=== PATIENT | female | born 1945 | race Caucasian/White ===

== ENCOUNTER 2022-05-14 13:02 | Emergency (ER) | payer MEDICARE ==
[2022-05-14] VITALS (12 sets, daily range): BP systolic 134–158; BP diastolic 67–89
[2022-05-14] MEDS ORDERED: FLEXERIL5 M1 PO (18:24)
[2022-05-14] MEDS ORDERED: NAPROXEN500 MG PO (18:24)
[2022-05-14] MEDS ORDERED: HYDROCO/APAP1 TA9 PO (18:24)
== END 2022-05-14 18:49 | disposition home or self-care (01) ==
LOC: ED 13:02
DX: S16.1XXA Strain of muscle, fascia and tendon at neck level, initial encounter (principal); I10 Essential (primary) hypertension; X50.0XXA Overexertion from strenuous movement or load, initial encounter; Y93.89 Activity, other specified; Y92.009 Unspecified place in unspecified non-institutional (private) residence as the place of occurrence of the external cause; Z95.5 Presence of coronary angioplasty implant and graft

== ENCOUNTER 2024-08-04 02:50 | Emergency (ER) | payer MEDICARE ==
[2024-08-04] VITALS (22 sets, daily range): BP systolic 142–176; BP diastolic 92–112
[~2024-08-04] VITALS: Ht 149.9 cm; Wt 49.0 kg
[~2024-08-04 02:50] MED LIST: FLEXERIL5 M1 PO; HYDROCO/APAP1 TA9 PO; NAPROXEN500 MG PO
[2024-08-04] MEDS ORDERED: Pantoprazole Sodium 40 MG VIAL (Protonix) IV STA (03:17)
[2024-08-04] MEDS ORDERED: SODIUM CHLORIDE 0.9% 1,000 ML IV STA (03:17)
[2024-08-04 03:52] LABS: BASO% 0.2 % (0-3); HEMATOCRIT 32.2 % (37.0-47.0); HEMOGLOBIN 9.8 g/dl (12.0-16.0); IMMATURE GRANULOCYTES 1.4 % (0.0-5.0); LYMPH% 7.2 % (15-41); MEAN CELL VOLUME 85.9 fL CALC (80.0-100.0); MEAN CORPUSCULAR HGB 26.1 pG CALC (26.0-32.0); MEAN CORPUSCULAR HGB CONC 30.4 g/dL CAL (32.0-36.0); MONO% 4.7 % (2-13); NEUT# 8.2 thou/uL (2.00-7.15); NEUT% 86.5 % (42-76); RED BLOOD COUNT 3.75 mill/uL (4.20-5.60); RED CELL DISTRI WIDTH 21.4 % (11.5-15.5)
[2024-08-04 04:02] LABS: ALBUMIN 3.6 g/dL (3.2-5.0); ALKALINE PHOSPHATASE 103 u/l (38-126); BILIRUBIN, TOTAL 0.8 mg/dL (0.02-1.3); BUN 70 mg/dL (8-23); CHLORIDE 104 mmol/l (95-108); CPK 47 u/l (30-135); MAGNESIUM 2.4 mg/dL (1.6-2.3); SGOT/AST 42 u/l (9-36); SODIUM 134 mmol/l (137-146); TOTAL PROTEIN 6.7 g/dL (6.3-8.2)
[2024-08-04 04:24] LABS: BUN/CREATININE RATIO 5 (12-20 (CALC)); ESTIMATED GFR 2 ML/MIN (>=90 (CALC))
[2024-08-04 04:26] LABS: ACT PARTIAL THROMBO TIME 29.5 SECONDS (20.0-32.5); INTERNATIONAL NORMALIZED RATIO 1.1 RATIO (0.7-1.3); PROTHROMBIN TIME 11.4 SECONDS (9.0-12.5)
[2024-08-04 04:28] LABS: ANION GAP 31 (6-22 (CALC)); CARBON DIOXIDE 6 mmol/l (22-30)
[2024-08-04 04:29] LABS: CREATININE 13.9 mg/dL (0.5-1.0); POTASSIUM 7.1 mmol/l (3.5-5.1)
[2024-08-04 04:33] LABS: D-DIMER 2.33 mg/L (0.19-0.60)
[2024-08-04 04:36] LABS: TSH, 3RD GENERATION 5.86 uIU/mL (0.47 - 4.68)
[2024-08-04] MEDS ORDERED: INSULIN REGULAR (HUMAN) 100 UNIT/ML INJ IV ONE ×2 (04:40→06:50)
[2024-08-04] MEDS ORDERED: DEXTROSE 10% 500 ML BAG IV ONE ×2 (04:45→06:50)
[2024-08-04] MEDS ORDERED: SODIUM BICARBONATE 8.4% 50 ML/SYR IV ONE (04:45)
[2024-08-04] MEDS ORDERED: CALCIUM GLUCONATE 2 GM in SODIUM CHLORIDE 0.9% 100 ML IV ONE (04:45)
[2024-08-04] MEDS ORDERED: ASPIRIN 81 MG/TAB PO ONE (04:50)
[2024-08-04] MEDS ORDERED: ENOXAPARIN SODIUM 100 MG/ML SYR SC ONE (04:50)
[2024-08-04] MEDS ORDERED: SODIUM CHLORIDE 0.9% 1,000 ML IV ONE (05:10)
[2024-08-04 05:29] LABS: URINE BLOOD DIPSTICK Negative (NEGATIVE); URINE GLUCOSE - DIPSTICK Negative (NEGATIVE); URINE KETONE 15 mg/dL (NEGATIVE); URINE LEUK ESTERASE Trace (NEGATIVE); URINE NITRITE - DIPSTICK Negative (Negative); URINE PH 5.5 (4.5-8.0); URINE PROTEIN - DIPSTICK >=300 mg/dL (NEG-TRACE); URINE SPECIFIC GRAVITY 1.025; URINE UROBILINOGEN - DIPSTICK 0.2 E.U./dL (0.2)
[2024-08-04 05:30] LABS: URINE COLOR Yellow
[2024-08-04 05:36] LABS: URINE EPITHELIAL CELLS MODERATE EPI/hpf (0-FEW)
[2024-08-04 05:37] LABS: URINE BACTERIA MANY hpf
[2024-08-04] MEDS ORDERED: Levofloxacin 750 mg Premix 150 ML IV ONE (06:25)
[2024-08-04 06:44] LABS: CREATININE 12.1 mg/dL (0.5-1.0); POTASSIUM 7.1 mmol/l (3.5-5.1)
[2024-08-04] MEDS ORDERED: SODIUM POLYSTYRENE SULFONATE 15 G/BTL POWDER PO ONE (06:50)
== END 2024-08-04 07:50 | disposition short-term general hospital (02) ==
LOC: ED 02:50
PROVIDERS: Family Medicine
DX: J18.9 Pneumonia, unspecified organism (principal); J44.0 Chronic obstructive pulmonary disease with (acute) lower respiratory infection; N17.9 Acute kidney failure, unspecified; R79.89 Other specified abnormal findings of blood chemistry; E87.5 Hyperkalemia; D64.9 Anemia, unspecified; C15.9 Malignant neoplasm of esophagus, unspecified; Z79.60 Long term (current) use of unspecified immunomodulators and immunosuppressants; I10 Essential (primary) hypertension; Z95.5 Presence of coronary angioplasty implant and graft; Z90.49 Acquired absence of other specified parts of digestive tract; Z91.81 History of falling; Z60.2 Problems related to living alone; Z20.822 Contact with and (suspected) exposure to COVID-19
CPT/HCPCS: J0612; J1650; J2470